=== PATIENT | female | born 1990 | race Caucasian/White ===

== ENCOUNTER 2016-10-11 11:18 | Emergency (ER) | payer OTHER ==
[~2016-10-11] VITALS: Ht 160 cm; Wt 114.4 kg
[2016-10-11 13:03] LABS: HEMATOCRIT 38.5 % (36.0-46.0); MCH 29.1 PG (29.0-34.0); MCHC 33.8 G/DL (30.0-36.0); MCV 86.1 FL (83-99); MEAN PLAT.VOLUME 9.8 uM^3 (9.5-12.4); PLATELET COUNT 259 K/uL (156-360); RBC DIS.WIDTH-CV 12.5 % (11.8-14.6); RBC DIS.WIDTH-SD 39.1 % (39-53); RED BLOOD COUNT 4.47 M/uL (3.80-5.20); WHITE BLOOD COUNT 8.6 K/uL (4.1-10.2)
[2016-10-11 13:11] LABS: ADD MIUA? YES; BILIRUBIN NEGATIVE; BLOOD NEGATIVE; COLOR YELLOW ((YELLOW)); GLUCOSE (STRIP) NEGATIVE; KETONES NEGATIVE; LEUKOCYTES NEGATIVE; NITRITE NEGATIVE; PROTEIN (STRIP) NEGATIVE; SPECIFIC GRAVITY 1.028 (1.000-1.030); UROBILINOGEN 0.2 MG/DL (0.2-1.0)
[2016-10-11 13:14] LABS: BACTERIA NONE SEEN /HPF; EPITHELIAL CELLS RARE /HPF; MUCUS TRACE /LPF; RED BLOOD CELLS 0-5 /HPF (0-5); WHITE BLOOD CELLS 0-5 /HPF (0-5)
[2016-10-11 13:15] LABS: CHLORIDE 104 mEq/L (99-109); SODIUM 135 mEq/L (136-147)
[2016-10-11 13:16] LABS: GLUCOSE 88 mg/dL (70-99)
[2016-10-11 13:18] LABS: ANION GAP 7 MEQ/L (2-14)
[2016-10-11 13:20] LABS: GFR ESTIMATE (CALCULATED) > 59 mL/min/
[2016-10-11 13:21] LABS: UREA NITROGEN (BUN) 8 mg/dL (9-23)
[2016-10-11 13:59] LABS: QUANTITATIVE HCG 71691.7 MIU/ML
[2016-10-11] MEDS ORDERED: ZOFRAN ODT4 MG PO (15:00)
[2016-10-11 15:40] VITALS: BP 113/69
== END 2016-10-11 15:43 | disposition home or self-care (01) ==
LOC: EME 11:18
PROVIDERS: Physician Assistant
DX: O21.9 Vomiting of pregnancy, unspecified (principal); Z3A.09 9 weeks gestation of pregnancy
CPT/HCPCS: 80048; 81003; 84702; 85027; 93005; 99281; 99285; J7030

== ENCOUNTER 2017-03-20 15:42 | Outpatient (CLI) | payer OTHER ==
[~2017-03-20] VITALS: Ht 160 cm; Wt 126.5 kg
[~2017-03-20 15:42] MED LIST: ZOFRAN ODT4 MG PO
[2017-03-20 16:57] LABS: HEMATOCRIT 32.1 % (36.0-46.0); HEMOGLOBIN 10.8 G/DL (11.9-15.5); MCH 28.7 PG (29.0-34.0); MCHC 33.6 G/DL (30.0-36.0); MCV 85.4 FL (83-99); PLATELET COUNT 312 K/uL (156-360); RED BLOOD COUNT 3.76 M/uL (3.80-5.20); WHITE BLOOD COUNT 10.3 K/uL (4.1-10.2)
[2017-03-20 17:08] LABS: ALBUMIN 3.4 g/dL (3.2-4.8); CHLORIDE 107 mEq/L (99-109); SODIUM 136 mEq/L (136-147)
[2017-03-20 17:10] LABS: GLUCOSE 91 mg/dL (70-99)
[2017-03-20 17:11] LABS: TOTAL PROTEIN 7.2 g/dL (6.4-8.3)
[2017-03-20 17:12] LABS: TOTAL BILIRUBIN 0.2 mg/dL (0.0-1.0)
[2017-03-20 17:14] LABS: ALKALINE PHOSPHATASE 136 IU/L (3-129); CREATININE 0.6 mg/dL (0.6-1.3); GFR ESTIMATE (CALCULATED) > 59 mL/min/
[2017-03-20 17:15] LABS: UREA NITROGEN (BUN) 6 mg/dL (9-23)
[2017-03-20 17:16] LABS: AST (GOT) 14 IU/L (2-34)
[2017-03-20 17:17] LABS: ALT (GPT) 12 IU/L (3-49)
[2017-03-20 17:25] LABS: QUANTITATIVE HCG 11219.7 MIU/ML
[2017-03-20 18:10] VITALS: BP 151/68
[2017-03-20 19:11] VITALS: BP 134/71
[2017-03-20 19:56] VITALS: BP 133/60
[2017-03-20 19:58] LABS: URIC ACID 3.5 mg/dL (3.1-9.2)
[2017-03-20 20:09] LABS: APPEARANCE SL.HAZY ((CLEAR)); BILIRUBIN NEGATIVE; BLOOD NEGATIVE; COLOR YELLOW ((YELLOW)); GLUCOSE (STRIP) NEGATIVE; KETONES 80; LEUKOCYTES NEGATIVE; NITRITE NEGATIVE; PROTEIN (STRIP) NEGATIVE; SPECIFIC GRAVITY 1.026 (1.000-1.030)
[2017-03-20 20:12] LABS: BACTERIA RARE /HPF; EPITHELIAL CELLS RARE /HPF; MUCUS 1+ /LPF; RED BLOOD CELLS 0-5 /HPF (0-5); UCUL ADDED? NO; WHITE BLOOD CELLS 0-5 /HPF (0-5)
[2017-03-20 20:31] LABS: UR CREATININE CONCENTRATION 202.1 MG/DL
[2017-03-20 21:04] LABS: LACTATE DEHYDROGENASE 198 IU/L (20-246)
[2017-03-20 22:10] LABS: CANDIDA DNA PROBE NEGATIVE; GARDNERELLA DNA PROBE NEGATIVE; TRICHOMONAS DNA PROBE NEGATIVE
== END 2017-03-20 20:20 | disposition home or self-care (01) ==
LOC: EME 15:42 → EDSTATUS 17:50 → LDRP-OP 17:52 → 2WEST 17:53
PROVIDERS: Advanced Practice Midwife
DX: O60.03 Preterm labor without delivery, third trimester (principal); O99.513 Diseases of the respiratory system complicating pregnancy, third trimester; Z3A.33 33 weeks gestation of pregnancy; J00 Acute nasopharyngitis [common cold]
CPT/HCPCS: 59025; 80053; 81003; 82570; 82731; 83615; 84156; 84550; 84702; 85027; 87480; 87510; 87660; G0378

== ENCOUNTER 2017-04-03 09:15 | Emergency (ER) | payer OTHER ==
[~2017-04-03] VITALS: Ht 160 cm; Wt 126.0 kg
[2017-04-03 09:17] VITALS: BP 122/85
== END 2017-04-03 10:22 | disposition left against medical advice (07) ==
LOC: EME 09:15
DX: Z53.21 Procedure and treatment not carried out due to patient leaving prior to being seen by health care provider (principal)
CPT/HCPCS: 99281

== ENCOUNTER 2017-04-26 18:58 | Inpatient (IN) | payer OTHER ==
[~2017-04-26] VITALS: Ht 157.5 cm; Wt 125.6 kg
[2017-04-26 19:25] VITALS: BP 143/82
[2017-04-26] MEDS ORDERED: PRENA1 CHEW TA1.4 MG PO (21:04)
[2017-04-26 22:53] VITALS: BP 103/64
[2017-04-26 23:48] VITALS: BP 139/74
[2017-04-27] VITALS (23 sets, daily range): BP systolic 99–136; BP diastolic 48–79
[2017-04-27 01:47] LABS: BASOPHIL (%) 0.4 % (0-1); EOSINOPHIL (%) 1.6 % (0-5); EOSINOPHIL COUNT 0.2 K/uL (0-0.3); HEMOGLOBIN 9.9 G/DL (11.9-15.5); IMMATURE GRANULOCYTE (%) 0.9 % (0.0-0.7); LYMPHOCYTE (%) 20.5 % (15-42); MCH 27.2 PG (29.0-34.0); MCV 82.4 FL (83-99); MONOCYTE COUNT 0.8 K/uL (0-0.8); NEUTROPHIL (%) 68.6 % (45-76); NEUTROPHIL COUNT 6.8 K/uL (1.8-6.4); PLATELET COUNT 242 K/uL (156-360); RBC DIS.WIDTH-CV 13.2 % (11.8-14.6); RBC DIS.WIDTH-SD 39.8 % (39-53); RED BLOOD COUNT 3.64 M/uL (3.80-5.20)
[2017-04-28] VITALS (8 sets, daily range): BP systolic 92–160; BP diastolic 44–84
[2017-04-29 07:05] LABS: BASOPHIL (%) 0.6 % (0-1); BASOPHIL COUNT 0.1 K/uL (0-0.1); EOSINOPHIL (%) 1.1 % (0-5); EOSINOPHIL COUNT 0.1 K/uL (0-0.3); HEMATOCRIT 29.3 % (36.0-46.0); HEMOGLOBIN 9.2 G/DL (11.9-15.5); IMMATURE GRANULOCYTE (%) 0.5 % (0.0-0.7); LYMPHOCYTE (%) 23.9 % (15-42); LYMPHOCYTE COUNT 2.4 K/uL (1.0-2.8); MCH 26.4 PG (29.0-34.0); MCHC 31.4 G/DL (30.0-36.0); MONOCYTE COUNT 0.8 K/uL (0-0.8); NEUTROPHIL (%) 65.9 % (45-76); NEUTROPHIL COUNT 6.6 K/uL (1.8-6.4); PLATELET COUNT 241 K/uL (156-360); RBC DIS.WIDTH-CV 13.5 % (11.8-14.6); RBC DIS.WIDTH-SD 41.4 % (39-53); RED BLOOD COUNT 3.49 M/uL (3.80-5.20)
[2017-04-29 07:14] VITALS: BP 110/68
[2017-04-29 15:11] VITALS: BP 126/77
[2017-04-30 00:15] VITALS: BP 131/80
[2017-04-30 08:00] VITALS: BP 112/69
[2017-04-30] MEDS ORDERED: DOCUSATE SODIU100 MG PO (11:07)
[2017-04-30] MEDS ORDERED: FERROCITE324 MG PO (11:07)
[2017-04-30] MEDS ORDERED: IBUPROFEN800 MG PO (11:07)
== END 2017-04-30 14:58 | disposition home or self-care (01) | DRG 775 ==
LOC: LDRP-OP → 2WEST 18:59 → LDRP-OP 06-14 10:22
PROVIDERS: Advanced Practice Midwife
DX: O76 Abnormality in fetal heart rate and rhythm complicating labor and delivery (principal); O99.013 Anemia complicating pregnancy, third trimester; O99.210 Obesity complicating pregnancy, unspecified trimester; Z68.41 Body mass index [BMI] 40.0-44.9, adult; D62 Acute posthemorrhagic anemia; E66.01 Morbid (severe) obesity due to excess calories; Z3A.38 38 weeks gestation of pregnancy
CPT/HCPCS: 85025; 88307; C1755; C1776; G0378; J3010; J7120

== ENCOUNTER 2017-08-08 13:09 | Day surgery (SDC) | payer OTHER ==
[~2017-08-08] VITALS: Ht 160 cm; Wt 116.4 kg
[~2017-08-08 13:09] MED LIST changes: +DOCUSATE SODIU100 MG PO; +FERROCITE324 MG PO; +IBUPROFEN800 MG PO; +PRENA1 CHEW TA1.4 MG PO
[2017-08-08 14:58] LABS: HEMATOCRIT 35.9 % (36.0-46.0); HEMOGLOBIN 11.7 G/DL (11.9-15.5); MCH 26.1 PG (29.0-34.0); MCHC 32.6 G/DL (30.0-36.0); PLATELET COUNT 329 K/uL (156-360); RBC DIS.WIDTH-CV 15.1 % (11.8-14.6); RBC DIS.WIDTH-SD 43.9 % (39-53); RED BLOOD COUNT 4.49 M/uL (3.80-5.20); WHITE BLOOD COUNT 11.7 K/uL (4.1-10.2)
[2017-08-08 15:05] LABS: CHLORIDE 106 mEq/L (99-109); POTASSIUM 4.2 mEq/L (3.7-5.4); SODIUM 140 mEq/L (136-147)
[2017-08-08 15:08] LABS: GLUCOSE 90 mg/dL (70-99)
[2017-08-08 15:10] LABS: TOTAL BILIRUBIN 0.3 mg/dL (0.0-1.0)
[2017-08-08 15:11] LABS: ALKALINE PHOSPHATASE 107 IU/L (3-129); CREATININE 0.8 mg/dL (0.6-1.3); GFR ESTIMATE (CALCULATED) > 59 mL/min/
[2017-08-08 15:12] LABS: UREA NITROGEN (BUN) 14 mg/dL (9-23)
[2017-08-08 15:13] LABS: AST (GOT) 18 IU/L (2-34)
[2017-08-08 15:14] LABS: ALT (GPT) 21 IU/L (3-49)
[2017-08-08 15:20] LABS: QUANTITATIVE HCG < 4.0 MIU/ML
[2017-08-08] MEDS ORDERED: AUGMENTIN875 MG PO (16:31)
[2017-08-08] MEDS ORDERED: TRAMADOL HCL50 MG PO ×2 (16:31→16:33)
[2017-08-08 18:03] VITALS: BP 102/58
[2017-08-08 18:56] VITALS: BP 100/54
== END 2017-08-08 19:35 | disposition home or self-care (01) ==
LOC: EME 13:09 → EDOF 15:16 → ENRESERV 15:24 → SDC 15:29 → ENRESERV 16:09 → CANRESERV 16:09 → EDOF 19:35 → SDC 19:35
PROVIDERS: Physician Assistant Medical
PROC: 0D9P0ZX Drainage of Rectum, Open Approach, Diagnostic (ICD-10-PCS; principal; 2017-08-08)
DX: K61.1 Rectal abscess (principal); D64.9 Anemia, unspecified
CPT/HCPCS: 80053; 81003; 84702; 85027; 87205; 99281; 99285; G0378; J0131; J0330; J1100; J1170; J1885; J2250; J2405; J3010; J7030; S0020; S0074